=== PATIENT | male | born 1935 | race Caucasian/White ===

== ENCOUNTER 2022-04-03 00:18 | Inpatient (IN) | payer MEDICARE, OTHER, SELFPAY ==
[2022-04-03] VITALS (15 sets, daily range): BP systolic 108–122; BP diastolic 47–56; PULSE 62–73; RESP 16–22; TEMP 36.4–36.9; O2SAT 78–98; BMI 26.9
--- NOTE | 2022-04-03 02:39 | HP.PCM.HOS_ITS ---
HPI - General General Date of Admission: 04/03/22 Date of Service: 04/03/22 Chief Complaint: Fatigue, malaise, fever, confusion. HPI Narrative The patient is an 86 y/o M w/ PMHx: EtOH abuse sober x 34 years, Former tobacco use with COPD, SELENA, CAD (denies PCI history of note), Inflammatory Polyarthropathy, Diabetes mellitus type II who presents to the [facility] as direct admission on 04/03/22 following evaluation at [facility] ED secondary to history of increased fatigue, malaise, nausea with decreased oral intake as well as fevers and mild reported confusion starting the evening prior but no specific dyspnea, cough, abdominal pain, diarrhea. He does admit to recent increased urinary frequency but no specific dysuria. 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, CT head with no acute intracranial findings, COVID-19 negative, urinalysis with elevated specific remedy 1.020, hazy, 5 ketones, moderate 2+ blood, glucose 50, leukocyte Estrace 1+, nitrite negative with WBC 41, RBC 20, bacteria 1+, chest x-ray with findings consistent with COPD and questionable left lower lobe infiltrate, lactate 1.5, CMP with sodium 136, potassium 4.0, chloride 101, anion gap 12, BUN/creatinine 21/1.50 (06/29/21 Cr 1.17), glucose 155, total bilirubin 1.9 (06/29/21 T Bili 0.4), AST/ALT 15/17, alk phos 50, CBC with WBC 13.4, hemoglobin 16.3, platelet 163 with left shift, EKG with SR with RBBB without acute evidence of ischemia. In the OSH ED patient administered IV rocephin, azithromycin. [facility] Medical History (Updated 04/03/22 @ 03:02 by Joslyn Evans) Allergic rhinitis CAD (coronary artery disease) COPD (chronic obstructive pulmonary disease) CPAP (continuous positive airway pressure) dependence Diabetes mellitus, type 2 Former smoker HLD (hyperlipidemia) HTN (hypertension) Inflammatory arthropathy SELENA (obstructive sleep apnea) Wears hearing aid in both ears Home Medications aspirin 81 mg tablet,delayed release 81 mg PO DAILY 04/02/22 [History Last Taken Unknown] metformin 500 mg tablet 500 mg PO DAILY 04/02/22 [History Last Taken Unknown] metoprolol succinate 50 mg tablet,extended release 24 hr 50 mg PO DAILY 04/02/22 [History Last Taken Unknown] prednisone 5 mg tablet 5 mg PO DAILY 04/02/22 [History Last Taken Unknown] rosuvastatin 20 mg tablet 20 mg PO DAILY 04/02/22 [History Last Taken Unknown] alendronate 70 mg tablet 70 mg PO QWEEK 04/03/22 [History Last Taken Unknown] cyanocobalamin (vitamin B-12) 1,000 mcg/mL injection solution 1,000 mcg IM QMONTH 04/03/22 [History Last Taken Unknown] fluticasone 100 mcg-salmeterol 50 mcg/dose blistr powdr for inhalation 1 inh inhalation BID 04/03/22 [History Last Taken Unknown] Allergy/AdvReac Type Severity Reaction Status Date / Time No Known Allergies Allergy Verified 04/03/22 02:49 Family History (Updated 04/02/22 @ 22:[address] Anu Hernandez MD) Other Adopted Surgical History History of tonsillectomy and adenoidectomy Social History (Updated 04/02/22 @ 22:[address] Anu Hernandez MD) household members: spouse Smoking Status: Former smoker how long ago did patient quit smoking: Quit ~30 years prior, smoked ~ 2 ppd until he quit, started near teenager. alcohol intake: former details: Sober x 34 years. substance use type: does not use ROS ROS Narrative Admission Review of Systems: CONSTITUTIONAL: No weight loss, chills, +fever, weakness or fatigue. HEENT: + Hard of hearing. Eyes: No visual loss, blurred vision, double vision or yellow sclerae. Ears, Nose, Throat: No hearing loss, sneezing, congestion, runny nose or sore throat. SKIN: No rash or itching, lesions, wounds. CARDIOVASCULAR: No chest pain, chest pressure or chest discomfort, palpitations, edema, orthopnea, syncopal events. RESPIRATORY: + shortness of breath, cough without marked sputum, No wheezing, hemoptysis. GASTROINTESTINAL: + anorexia, nausea, vomiting, diarrhea, No abdominal pain, melena, BRBPR. GENITOURINARY: + Frequency, urgency, No dysuria or retention. NEUROLOGICAL: + Confusion, No headache, dizziness, syncope, paralysis, ataxia, numbness or tingling in the extremities, focal weakness, change in bowel or joy dder control, seizure. MUSCULOSKELETAL: + muscle, back pain, joint pain or stiffness. HEMATOLOGIC: + anemia, bleeding or bruising. LYMPHATICS: No enlarged nodes. No history of splenectomy. PSYCHIATRIC: No history of depression or anxiety. ENDOCRINOLOGIC: No reports of sweating, cold or heat intolerance. No polyuria or polydipsia. ALLERGIES: No history of asthma, hives, eczema or rhinitis. Physical Exam Narrative Physical Examination: General: Awake, alert, oriented x 3 and cooperative, seated upright in MedSur bed, no acute distress, fatigued appearing. Skin: Normal color, normal turgor, no icterus, no cyanosis. HEENT: AT/NC, EOMI, PERRLA, MMM, no carotid bruits or JVD noted. Lungs: Mildly diminished, greater bases, appropriate effort, no rales, ronchi or wheezing. Heart: Regular rate and rhythm; no gallop, rub audible. Abdomen: Soft, NTTP, no marked suprapubic tenderness to palpation, ND, distant normal BS, no HSM. Extremities: No cyanosis, clubbing, or edema. Neurological: Patient awake, alert, oriented as noted, hard of hearing, cognitive function appears improved, currently appears suspected basal intact; pupils equally reactive to light and accommodation, cranial nerves grossly normal, moving all 4 extremities, no focal deficits, strength mildly to moderately global decreased Psychiatric: Affect appears fatigued otherwise normal, no acute evidence of depressive or anxiety feelings. Assessment & Plan Assessment/Plan (1) Pneumonia: PLAN: Plan The patient is an 86 y/o M w/ PMHx: EtOH abuse sober x 34 years, Former tobacco use with COPD, SELENA, CAD (denies PCI history of note), Inflammatory Polyarthropathy, Diabetes mellitus type II who presents to the [facility] as direct admission on 04/03/22 following evaluation at [facility] ED secondary to history of increased fatigue, malaise, nausea with decreased oral intake as well as fevers and mild reported confusion starting the evening prior but no specific dyspnea, cough, abdominal pain, diarrhea. He does admit to recent increased urinary frequency but no specific dysuria. #1. Acute Encephalopathy secondary to Acute Community Acquired Pneumonia with associated Hypoxia and possible #2: Will admit to MS, maintain on oxygen with wean as tolerated to room air, hold home inhaler and in the interim transition to ATC duonebs given underlying COPD as noted, PRN albuterol, maintain on IV Rocephin and Azithromycin, HOB, IS parameters w/ pending sputum cultures, full respiratory viral panel and urine antigens. #2. Possible Acute Urinary Tract Infection: UA upon OSH ED evaluation mildly remarkable, pending UCx, continue IVFs, monitor I/Os, continue IV Rocephin w/ transition as able pending sensitivities and speciation from their facility. #3. Acute renal insufficiency: Outside facility BUN/creatinine 21/1.50, baseline creatinine noted prior 06/29/2021 1.17, will judiciously hydrate and repeat BMP in AM. #4. Hyperbilirubinemia: CMP at outside facility with total bilirubin 1.9 previously noted 06/29/2020 1T bili 0.4 with unremarkable AST/ALT and alk phos, will request repeat CMP in a.m. and if remains elevated despite treatments as noted above we will pursue further work-up. #5. Inflammatory polyarthropathy: We will continue patient home low-dose chronic prednisone therapy. #6. CAD: From review of external records noted 12/12/21 cardiac stress testing with no acute evidence of inducible ischemia, noted moderate (10-20%) fixed perfusion defect in the LAD territory, LV normal size, normal LV systolic function, RV normal size. #7. Hypertension: Continue home regimen including metoprolol with hold parameters as needed, PRN hydralazine. #8. Hyperlipidemia: Continue home statin regimen. #9. Diabetes mellitus type II: Hold oral home regimen, ADA diet, accu checks w/ ISS. #10. Chronic COPD: Will maintain on oxygen with wean as tolerated to room air, hold home inhaler and transition in interim to ATC duonebs, PRN albuterol, HOB, IS parameters. #11. Former alcohol abuse: Sober x34 years, encourage continued sobriety. #12. Former tobacco use: Encourage continued tobacco cessation. #13. SELENA: CPAP nightly. #14. DVT prophylaxis: SCDs, Lovenox. #15. CODE status: Patient GERALDO is his and daughter and living will is currently in place. Discussed CODE status at length including difference between FULL code, DNR-CCA and DNR-CC status. Following discussions about the differences in these status, requested Full Code status. Advanced Care Planning Face to Face Time: 16 minutes. Charges/Coding Visit Charges OBSV E&M: 54515 Initial observation care L3 Procedures Hospitalists Procedures: 44040 Advncd Care Plan 30 Min
[2022-04-03] MEDS: 0.9% Normal Saline 1,000 ML 100 ML IV ×3 (03:19→21:16)
[2022-04-03 05:01] LABS: Absolute Lymphocyte Count 1.45 X10^3/uL (0.83-4.51); Absolute Neutrophil Count 14.1 X10^3/uL (2.0-7.7); Basophil# 0.05 X10^3/uL; Basophil% 0.3 % (0-1); Eosinophil# 0.01 X10^3/uL; Eosinophils% 0.1 % (0-5); Hematocrit 43.9 % (40-54); Hemoglobin 14.8 g/dL (13.0-16.5); Lymphocyte # 1.45 X10^3/ul (0.83-4.51); Lymphocyte % 8.2 % (19-41); Mean Corp Hgb Conc 33.7 g/dL (32-36); Mean Corpuscular Hgb 31.2 pg (27.0-32.0); Mean Corpuscular Volume 92.6 fL (80-94); Mean Platelet Vol. 10.5 fl (6.2-12.0); Monocyte# 1.86 X10^3/uL; Monocyte% 10.6 % (0-10); NRBC Flagged by Analyzer 0 % (0-5); Neutrophil # 14.13 X10^3/uL (2.7-7.7); Neutrophil % 80.2 % (47-70); POSITIVE DIFFERENTIAL YES; Platelet Count 151 K/mm3 (150-450); RBC Distribution Width CV 13.4 % (11.6-14.6); RBC Distribution Width SD 45.6 fl (35.1-43.9); Red Blood Count 4.74 M/mm3 (4.6-6.2); White Blood Count 17.6 K/mm3 (4.4-11.0)
[2022-04-03 05:13] LABS: Differential Indicated SCAN CRITERIA MET
[2022-04-03 05:25] LABS: ALB/GLOB Ratio 0.8 RATIO (0.9-2.4); AST(SGOT) 14 U/L (15-37); Alanine Aminotransfer ALT/SGPT 20 U/L (16-61); Albumin, Serum 2.7 g/dL (3.2-5.0); Alkaline Phosphatase 49 U/L (45-117); Anion Gap 9 (5-15); BUN 20 mg/dL (7-18); BUN/Creat Ratio 16.5 RATIO (10-20); Calcium,Total 8.7 mg/dL (8.5-10.1); Chloride 102 mmol/L (98-107); Creatinine, Serum 1.21 mg/dL (0.70-1.30); EST Glomerular Filtration Rate 61 mL/min (>60); Est Glom Filt Rate - Afr Amer 73 mL/min (>60); Estimated Creatinine Clearance 47.54 ml/min; Globulin 3.5 g/dL (2.2-4.2); Glucose 146 mg/dL (74-106); Potassium 3.7 mmol/L (3.5-5.1); Protein, Total 6.2 g/dL (6.4-8.2); Sodium Level 137 mmol/L (136-145)
[2022-04-03 06:55] LABS: Bedside Glucose 132 mg/dL (74-106)
[2022-04-03] MEDS: Ipratropium/Albuterol Sulfate 3 ML AMPUL.NEB INHALATION ×3 (07:28→19:46)
[2022-04-03] MEDS: Enoxaparin 40 MG/0.4 ML Syringe SC (08:34)
[2022-04-03] MEDS: predniSONE 5 MG Tablet PO (08:35)
[2022-04-03] MEDS: Aspirin E.C. 81 MG Tablet PO (08:35)
[2022-04-03] MEDS: Ceftriaxone 1 GM/50 ML BAG IV (09:24)
[2022-04-03] MEDS: Insulin Lispro 100 UNIT/ML INSULN.PEN SC ×3 (11:31→21:16)
[2022-04-03 11:45] LABS: Bedside Glucose 209 mg/dL (74-106)
[2022-04-03] MEDS: predniSONE 20 MG Tablet 40 MG PO (12:04)
[2022-04-03 12:46] LABS: Pathologist Review Reviewed
--- NOTE | 2022-04-03 13:36 | PCM.HOSP.N ---
Hospitalist Note Mr. Owen is an 86-year-old male who was admitted early this morning with acute hypoxia. He recently went on a cruise up to [place] and has just returned. He presented to outside facility with increased fatigue, malaise, nausea and decreased oral intake as well as fevers and some mild confusion along with cough. He was found to be hypoxic on room air with oxygen saturations in the low 80s to upper 70s. 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 CT of the head was negative. His COVID-19 was negative urinalysis was consistent with dehydration but showed no signs of infection. His lactate was 1.5 initially and he appeared to have some dehydration with a serum creatinine of 1.5 (baseline 1.17 on most recent lab). He was transferred here as there was no beds available there and started on IV antibiotics with Rocephin and azithromycin as an outpatient. He was found to have a positive viral swab for RSV while hospitalized here. He has had ongoing fatigue, decreased appetite, and hypoxia on room air with exertion. We will go ahead and continue IV fluids but decrease rate from 100-50, continue ceftriaxone azithromycin for potential superimposed bacterial pneumonia with CAT scan findings, continue prednisone but increase to 40 mg daily with wheezing on exam, and continue supportive care. We will reevaluate him tomorrow. Oxygen saturations at rest were 96% however he desatted to 78% on room air. He required 2 L to keep oxygen saturations greater than 92% with exertion.
--- NOTE | 2022-04-03 13:48 | CASEMGMT ---
Addendum entered by Uzma Owen 04/03/22 13:58: Referral to patient link made. Original Note: RN NICA Assessment: Face to Face with pt for initial transition planning/care coordination assessment. RN CM introduced self and role at [facility], pt voices understanding and consents to assessment. Pt is A/O x4 and answers all questions appropriately at this time. Pt lying in bed with oxygen on in no distress, at bedside. Care providers, pharmacy, and demographics verified/updated. Admitting Dx: pna, hypoxia, ? UTI PCP:Antonio Specialists:Abad, cardio; Liver specialist at [facility] Preferred Pharmacy: [facility] in [place] Insurance: [facility], [employer] Prescription Benefit: yes LW/HPOA: Pt states he has a LW/DPOA and his Tina Owen is his DPOA. He is aware this is not on file at [facility] and he may bring in to be scanned into the chart. LNOK: Tina Owen, Living Arrangements: Pt lives with in a single story house with 5 steps to enter without a rail. Pt reports he is I in ADL's and denies concerns at home. Transportation: Pt drives self and denies concerns with transportation. DME/HHC/SNF: Pt has a cane that he uses occasionally and has grab bars in the bathroom. Pt denies hx of HHC or SNF stays. Pt states no concerns with going home at time of dc. Patient currently denies need for HHC or therapy whether it be in the home or outpt. Patient was provided a list of HHC providers including quality and resource use data and consistent with the patient?s preferred geographic region, medical needs, and insurance network were provided from the [employer] Guide. He is aware that should he get home and change his mind, he can contact his PCP to see about making referral. Pt states no further concerns/needs. CM to follow. Advised pt to ask CM if any further question/concerns/needs arise, voices understanding. Pt Goal: Home Plan: Home
[2022-04-03 16:50] LABS: Bedside Glucose 192 mg/dL (74-106)
[2022-04-03] MEDS: Atorvastatin Calcium 40 MG Tablet PO (21:16)
[2022-04-03 21:41] LABS: Bedside Glucose 232 mg/dL (74-106)
[2022-04-04] VITALS (9 sets, daily range): BP systolic 112–117; BP diastolic 53–63; PULSE 59–70; RESP 18–20; TEMP 36.3–36.5; O2SAT 84–94
[2022-04-04 04:58] LABS: Absolute Lymphocyte Count 0.66 X10^3/uL (0.83-4.51); Absolute Neutrophil Count 10.2 X10^3/uL (2.0-7.7); Basophil# 0.02 X10^3/uL; Basophil% 0.2 % (0-1); Hematocrit 40.4 % (40-54); Hemoglobin 13.9 g/dL (13.0-16.5); Lymphocyte # 0.66 X10^3/ul (0.83-4.51); Lymphocyte % 5.4 % (19-41); Mean Corp Hgb Conc 34.4 g/dL (32-36); Mean Corpuscular Volume 92.9 fL (80-94); Mean Platelet Vol. 10.2 fl (6.2-12.0); Monocyte# 1.37 X10^3/uL; Monocyte% 11.1 % (0-10); NRBC Flagged by Analyzer 0 % (0-5); Neutrophil # 10.19 X10^3/uL (2.7-7.7); Neutrophil % 82.6 % (47-70); Platelet Count 140 K/mm3 (150-450); RBC Distribution Width CV 13.2 % (11.6-14.6); RBC Distribution Width SD 45.5 fl (35.1-43.9); Red Blood Count 4.35 M/mm3 (4.6-6.2); White Blood Count 12.3 K/mm3 (4.4-11.0)
[2022-04-04 05:26] LABS: ALB/GLOB Ratio 0.7 RATIO (0.9-2.4); AST(SGOT) 28 U/L (15-37); Alanine Aminotransfer ALT/SGPT 35 U/L (16-61); Albumin, Serum 2.4 g/dL (3.2-5.0); Alkaline Phosphatase 49 U/L (45-117); Anion Gap 5 (5-15); BUN 18 mg/dL (7-18); BUN/Creat Ratio 17.5 RATIO (10-20); Calcium,Total 8.5 mg/dL (8.5-10.1); Chloride 110 mmol/L (98-107); Creatinine, Serum 1.03 mg/dL (0.70-1.30); EST Glomerular Filtration Rate 73 mL/min (>60); Est Glom Filt Rate - Afr Amer 88 mL/min (>60); Estimated Creatinine Clearance 55.85 ml/min; Globulin 3.4 g/dL (2.2-4.2); Glucose 160 mg/dL (74-106); Magnesium 2.3 mg/dL (1.6-2.6); Phosphorus 1.7 mg/dL (2.5-4.9); Protein, Total 5.8 g/dL (6.4-8.2); Sodium Level 141 mmol/L (136-145)
[2022-04-04] MEDS: 0.9% Normal Saline 1,000 ML 100 ML IV (06:15)
[2022-04-04] MEDS: Senna/Docusate Sodium 1 Tablet 2 TABLET PO (06:16)
[2022-04-04] MEDS: Insulin Lispro 100 UNIT/ML INSULN.PEN SC ×2 (06:16→11:22)
[2022-04-04 06:40] LABS: Bedside Glucose 165 mg/dL (74-106)
[2022-04-04] MEDS: Ipratropium/Albuterol Sulfate 3 ML AMPUL.NEB INHALATION ×2 (07:11→13:54)
[2022-04-04] MEDS: predniSONE 20 MG Tablet 40 MG PO (08:40)
[2022-04-04] MEDS: Metoprolol(XL)Succ 50 MG Tablet PO (08:40)
[2022-04-04] MEDS: Aspirin E.C. 81 MG Tablet PO (08:40)
[2022-04-04] MEDS: Enoxaparin 40 MG/0.4 ML Syringe SC (08:41)
[2022-04-04] MEDS: Ceftriaxone 1 GM/50 ML BAG IV (10:03)
[2022-04-04] MEDS: 0.9% Saline Lock 10 ML Syringe IV (10:03)
[2022-04-04 11:45] LABS: Bedside Glucose 229 mg/dL (74-106)
--- NOTE | 2022-04-04 13:15 | DS.PCM_ITS ---
Providers Date of Admission: 04/03/22 Date of Discharge: 04/04/22 Primary Care Physician: Dr. Sally Alvarez MD Reason For Visit: PNA, HYPOXIA, ? UTI Diagnosis Discharge Diagnosis (1) Pneumonia: Status: Acute Code(s): J18.9 - Pneumonia, unspecified organism Medications at Discharge Home Medications aspirin 81 mg tablet,delayed release 81 mg PO DAILY 04/02/22 metformin 500 mg tablet 500 mg PO DAILY 04/02/22 metoprolol succinate 50 mg tablet,extended release 24 hr 50 mg PO DAILY 04/02/22 rosuvastatin 20 mg tablet 20 mg PO DAILY 04/02/22 alendronate 70 mg tablet 70 mg PO QWEEK 04/03/22 cyanocobalamin (vitamin B-12) 1,000 mcg/mL injection solution 1,000 mcg IM QMONTH 04/03/22 fluticasone 100 mcg-salmeterol 50 mcg/dose blistr powdr for inhalation 1 inh inhalation BID 04/03/22 levofloxacin 750 mg tablet 750 mg PO DAILY #5 tabs 04/04/22 prednisone 10 mg tablet 10 mg PO DAILY #20 tabs 04/04/22 prednisone 5 mg tablet 5 mg PO DAILY #1 TAB 04/04/22 Hospital Course Operations None Procedures - (CTA chest) Summary of Care Provided Minutes Spent on Discharge: 37 Hospital Course: Mr. Owen is an 86-year-old white male who presented to an outside facility with acute hypoxia and shortness of breath with an associated fatigue, malaise, nausea, and decreased oral intake. There is also some report of fever and mild confusion along with a cough. He had evidently recently gone on a cruise up to [place] and had just returned. A CTA of his chest was performed outside facility was negative for pulmonary embolism but did show chronic changes as well as subtle basilar opacities that were concerning for developing pneumonia. A CT of the head was performed and was negative. His COVID-19 was negative. Urinalysis was concerning for infection and his BMP was consistent with dehydration as he had a serum creatinine of 1.5 demonstrating a previous baseline of 1.1-1.2. He was transferred from [facility] in [place] here as there were no beds available at that time and he was started on IV antibiotics with Rocephin and azithromycin. While he was hospitalized he was found to have a positive RSV swab. He had ongoing fatigue with decreased appetite and was treated with supportive care along with oral steroids at 40 mg daily given his expiratory wheezing. IV fluids were given as well and his serum creatinine returned to baseline. Strep pneumo and Legionella antigen were negative. A urine culture was obtained given the concern for UTI based on his UA at outside facility and it was negative for any growth. On the day of discharge his serum creatinine is 1.03. He had a leukocytosis upon presentation at 17.6. This trended down as well to 12.3 on the day of discharge. On the a.m. of 04/04/2022 he was feeling much better with improved energy, decreased nausea with much improved oral intake but did continue to need oxygen with exertion. An ambulatory pulse ox was performed and while he was 94% at rest with room air, he did desaturate to 84% with exertion and improved to 93% on 2 L nasal cannula. He indicated he was feeling well enough to go home and desired to do so. We were able to discharge him home on supplemental oxygen with exertion on 04/04/2022. We did maintain him on oral antibiotics for another 5 days to complete a total 7-day treatment and he was sent home with a prednisone taper. Once his prednisone taper is discontinued he is to restart his chronic prednisone of 5 mg daily. He is to follow-up with his primary care physician within the next 1 to 2 weeks to be ri t evaluated for oxygen needs with exertion. The plan was explained to the patient with his at the bedside and they both expressed understanding. Discharge diagnoses: RSV pneumonia Suspected superimposed bacterial pneumonia Hypoxia secondary to above Metabolic encephalopathy-resolved FREDDIE-resolved Hyperbilirubinemia-resolved Inflammatory polyarthropathy CAD Hypertension Hyperlipidemia DM-2 COPD History of alcohol abuse History of tobacco abuse SELENA Physical Exam Const alert, oriented x3, no apparent distress, no limitations, healthy appearing and well nourished Constitutional Narrative: Overweight, elderly white male sitting up in bed, appears comfortable and n ontoxic General Appearance: cooperative, comfortable, well kempt and well developed Orientation / Consciousness: awake Exam Limitations: no limitations Nutritional Appearance: overweight HEENT normocephalic, head/scalp atraumatic and moist oral mucous membranes HEENT Narrative: Mallampati 2-3, no thrush Eyes PERRL, EOMs intact bilaterally and conjunctivae normal Eyes Narrative: No scleral Neck no lymphadenopathy, supple and no JVD Neck Narrative: Trachea midline, no thyroid enlargement Resp normal respiratory effort, no retractions, no use of accessory muscles and clear to auscultation bilaterally Resp Narrative: Diminished but clear Auscultation: Negative for crackles, rales, rhonchi or wheezes Cardio regular rate, regular rhythm, S1 normal heart sound, S2 normal heart sound, no murmurs, no rub, no gallops and no clicks GI normal to inspection, nondistended, normoactive bowel sounds, soft to palpation and non-tender Extremity no clubbing, cyanosis or edema Extremity Narrative: 2+ pedal pulses Skin no rashes or lesions noted, no wounds, skin turgor normal and no jaundice Neuro oriented x3, CN's II-XII intact bilaterally and no focal motor deficits Neuro Narrative: Mild generalized weakness Sensorium / Orientation: awake, alert, oriented to person, oriented to place and oriented to time Speech: speech normal Psych affect normal Psych Narrative: Very pleasant and appropriately interactive Weight / BMI Weight Weight: 89.8 kg Body Mass Index (BMI) 26.9 ABG / Lab / Microbiology Data Result Diagrams: 04/04/22 04:40 04/04/22 04:40 Laboratory: Laboratory Results - last 24 hr 04/03/22 16:29: POC Glucose 192 H 04/03/22 21:16: POC Glucose 232 H 04/04/22 04:40: WBC 12.3 H, RBC 4.35 L, Hgb 13.9, Hct 40.4, MCV 92.9, MCH 32.0, MCHC 34.4, RDW Std Deviation 45.5 H, RDW Coeff of Jasmin 13.2, Plt Count 140 L, MPV 10.2, Immature Gran % (Auto) 0.700, Neut % (Auto) 82.6 H, Lymph % (Auto) 5.4 L, [place] % (Auto) 11.1 H, Eos % (Auto) 0.0, Baso % (Auto) 0.2, Absolute Neuts (auto) 10.2 H, Absolute Lymphs (auto) 0.66 L, Nucleated RBC % 0 04/04/22 04:40: Sodium 141, Potassium 4.0, Chloride 110 H, Carbon Dioxide 26.0, Anion Gap 5, BUN 18, Creatinine 1.03, Estim Creat Clear Calc 55.85, Est GFR (MDRD) Af Amer 88, Est GFR (MDRD) Non-Af 73, BUN/Creatinine Ratio 17.5, Glucose 160 H, Calcium 8.5, Phosphorus 1.7 L, Magnesium 2.3, Total Bilirubin 0.40, AST 28, ALT 35, Alkaline Phosphatase 49, Total Protein 5.8 L, Albumin 2.4 L, Globulin 3.4, Albumin/Globulin Ratio 0.7 L 04/04/22 06:15: POC Glucose 165 H 04/04/22 11:20: POC Glucose 229 H Microbiology: Microbiology 04/03/22 21:00 Urine, Clean Catch Urine Culture - Preliminary Culture exhibits no growth. 04/03/22 03:40 Mucosa - Nasopharyngeal Respiratory Panel (PCR) - Final Rhinovirus 04/03/22 05:55 Urine, Clean Catch Legionella Antigen - Final 04/03/22 05:55 Urine, Random Streptococcus pneumoniae Antigen (M - Final D/C Instructions Discharge Diet: Low fat / Low cholesterol and 1800 Calorie Control Diet Discharge Activity: Return to Normal Activity Meaningful Use Info Meaningful Use Diagnoses (Choose all that apply): None applicable Discharge Plan Admission Admit Date/Time: 04/03/22 11:41 Primary Reason for Your Visit: Shortness of breath/hypoxia Attending Provider: Allison Waite Primary Care Provider: Sally Alvarez Consulting Providers: Anu Hernandez Instructions Additional Instructions / Restrictions: 1. Please use oxygen during exertion until discontinued by your primary care physician Discharge Orders/Prescriptions Prescriptions: New levofloxacin 750 mg tablet 750 mg PO DAILY Qty: 5 0RF prednisone 10 mg tablet 10 mg PO DAILY Qty: 20 0RF Rx Instructions: 40 mg x 2 days, 30 mg x 3 days, 20 mg x 3 days, 10 mg x 3 days Continued alendronate 70 mg tablet 70 mg PO QWEEK Label Comments: Take 1 tab by mouth ONCE WEEKLY in morning with a full glass of water, on empty stomach. Do not eat, drink or lie down for 30 mins after cyanocobalamin (vitamin B-12) 1,000 mcg/mL solution 1,000 mcg IM QMONTH fluticasone propion-salmeterol 100-50 mcg/dose blister with device 1 inh INHALATION BID Label Comments: Inhale 1 Puff as instructed twice daily. RINSE AND GARGLE MOUTH WITH WATER AFTER EACH USE. prednisone 5 mg Tablet 5 mg PO DAILY Qty: 1 0RF Rx Instructions: Hold until prednisone taper is discontinued metformin 500 mg Tablet 500 mg PO DAILY metoprolol succinate 50 mg Tablet Extended Release 24 Hr 50 mg PO DAILY aspirin 81 mg Tablet,Delayed Release (Dr/Ec) 81 mg PO DAILY rosuvastatin 20 mg Tablet 20 mg PO DAILY Referrals / Follow Up: Sally Alvarez MD [Primary Care Provider] - Within 2 Weeks Disposition Disposition (needs filled in before D/C Order can be placed): Home, Self Care Charges/Coding Visit Charges Inpatient E&M: 89910 Disch Hosp
--- NOTE | 2022-04-04 13:30 | CASEMGMT ---
Pt qualifies for home oxygen. COLEEN CM in to pt room, pt provided with a local in network list of DME companies, pt chose [employer]. Referral sent via [facility]port for oxygen. Email to hospital liaision. Pt to dc home with pox as well. Pt is still declining need for HHC. He is aware as well as to call [employer] once home to have concentrator delivered. They both verbalize understanding.
--- NOTE | 2022-04-04 14:57 | PHA.DC.MC ---
Pharmacy Service has performed discharge medication reconciliation and counseling for this patient. 1. LEVOFLOXACIN 750MG PO DAILY X 5 DAYS The patient's discharge medication list was reviewed for discrepancies and discrepancies were resolved. Patient instructed to hold baseline prednisone 5mg until taper is complete. Home Medications aspirin 81 mg tablet,delayed release 81 mg PO DAILY 04/02/22 metformin 500 mg tablet 500 mg PO DAILY 04/02/22 metoprolol succinate 50 mg tablet,extended release 24 hr 50 mg PO DAILY 04/02/22 rosuvastatin 20 mg tablet 20 mg PO DAILY 04/02/22 alendronate 70 mg tablet 70 mg PO QWEEK 04/03/22 cyanocobalamin (vitamin B-12) 1,000 mcg/mL injection solution 1,000 mcg IM QMONTH 04/03/22 fluticasone 100 mcg-salmeterol 50 mcg/dose blistr powdr for inhalation 1 inh inhalation BID 04/03/22 levofloxacin 750 mg tablet 750 mg PO DAILY #5 tabs 04/04/22 prednisone 10 mg tablet 10 mg PO DAILY #20 tabs 04/04/22 prednisone 5 mg tablet 5 mg PO DAILY #1 TAB 04/04/22 The patient was counseled on the following discharge medications and changes in medications for homegoing were reviewed. The Reason for Use, instructions for use, and potential side effects were reviewed for all new medications. The patient's questions regarding all of their medications were answered. The patient was able to verbally demonstrate an understanding of their discharge medications. Patient counseled by pharmacy technician instructorMari.
--- NOTE | 2022-04-06 12:04 | CASEMGMT ---
COLEEN YOUSIF received call from patient. Patient states he has been monitoring his oxygen level at home and has been maintaining above 90%. Patient states he called [employer] to pickup home oxygen but they state he need an order. Patient is requesting script from hospitalist to discontinue oxygen. COLEEN YOUSIF educated patient that his PCP will need to discontinue his home oxygen. Patient states he will be calling to schedule follow-up appt. Patient inquired if he needed to continue taking his levofloxacin as it is causing him to be restless and not able to sleep at night. COLEEN YOUSIF educated patient on the importance of finishing all of his antibiotic to treat his pneumonia. Patient states he only has three doses left and will finish medication as prescribed. Patient had no further questions or concerns at this time.
== END 2022-04-04 14:49 | disposition home or self-care (01) | DRG 193 ==
PROVIDERS: Admitting Provider Family Medicine; PCP Internal Medicine; Visit Provider Internal Medicine
DX: J12.1 Respiratory syncytial virus pneumonia (principal); G93.41 Metabolic encephalopathy; J44.0 Chronic obstructive pulmonary disease with (acute) lower respiratory infection; E11.9 Type 2 diabetes mellitus without complications; M06.4 Inflammatory polyarthropathy; I25.10 Atherosclerotic heart disease of native coronary artery without angina pectoris; E78.5 Hyperlipidemia, unspecified; I10 Essential (primary) hypertension; G47.33 Obstructive sleep apnea (adult) (pediatric); I45.10 Unspecified right bundle-branch block; E80.7 Disorder of bilirubin metabolism, unspecified; E86.0 Dehydration; J15.9 Unspecified bacterial pneumonia; Z87.891 Personal history of nicotine dependence; Z79.82 Long term (current) use of aspirin; Z79.899 Other long term (current) drug therapy; R09.02 Hypoxemia; N28.9 Disorder of kidney and ureter, unspecified; Z87.440 Personal history of urinary (tract) infections; Z79.52 Long term (current) use of systemic steroids; E66.3 Overweight; Z68.26 Body mass index [BMI] 26.0-26.9, adult
CPT/HCPCS: 36415; 80053; 82962; 83735; 84100; 85025; 87086; 87449; 87633; 94640; 97110; 97116; 97162; 97166; 97530; 97535; J7030; J7050; A4216

== ENCOUNTER → 2023-11-13 | Outpatient (CLI) | payer MEDICARE, OTHER, SELFPAY ==
[2023-11-13 11:11] VITALS: BP 112/47; PULSE 65; RESP 16; O2SAT 99; BMI 24.5
--- NOTE | 2023-11-13 12:16 | PCM.OP.PRO ---
Procedure Report Date of Procedure: 11/13/23 Assessment & Plan Assessment/Plan (1) Diffuse large B cell lymphoma: QUALIFIERS: Lymphoma site: unspecified region Qualified Code(s): C83.30 - Diffuse large B-cell lymphoma, unspecified site Procedures Radiology Radiology Access Procedures: [id number] Insertion of PICC w/out port or pump Procedure Time Out Time Out Informed consent given: Yes Consent signed: Yes Time out checklist: patient, procedure, site marked/identified, positioning of patient, supplies available and allergies confirmed Time out verified: Yes Time out date: 11/13/23 Time out time: 11:29 PICC Line Consent Screening tool completed:: Yes Consent obtained:: Yes Consent given by (patient or responsible libertarian):: patient Line successful (if no, document why in comments):: Yes Insertion Reason for Insertion: Chemotherapy Date of Insertion: 11/13/23 Ok to use: Yes Type of PICC inserted: Single Power PICC PICC Lot #: [id number] PICC Reference #: [id number] Microintroducer Used: Yes (NOT included in Kit) Ultrasound/Equipment Used: Probe Cover Kit Trimmed Length (cm): 45 Insertion Length (cm): 45 Exposed Length (cm): 0 Tip Placement: Caval Atrial Junction Placement Confirmation: 3CG Insertion Vein: Right Basilic Insertion Attempts: 1 Local Anesthesia Used: Lidocaine 1% (in kit) Dressing Applied: Statlock and Tegaderm CHG Arm Measurement above site (in cm): 27 Patient Tolerated Procedure: Well Threading Difficulties: No Comments Comment: Patient identity was verified with two patient identifiers. Informed consent was obtained and time-out was completed. Hands were sanitized. The patient was positioned supine with right arm at 90 degrees. The patient's upper arm vasculature was assessed using ultrasound. Patency of the right basilic vein was confirmed and the vein was externally marked. An external measurement was obtained of 45 cm. External leads were applied to the patient's right upper chest and laterally and inferior of the umbilicus on the mid axillary line. Cap, mask, and prep gloves were donned. The underdrape was placed under the patient's arm. The site was prepped with chlorhexidine, and tourniquet was loosely applied. Prep gloves were discarded, and hands were sanitized. The sterile kit was opened with additional supplies dropped in. Sterile gown and gloves were donned, and the patient was draped. The sterile kit was assembled with needle, introducer, needless connector, and catheter lumen flushed with sterile normal saline. The marked site of insertion was anesthetized with 1% lidocaine from the kit. Patient tolerated well. The right basilic vein was then accessed using ultrasound guidance and guidewire was inserted to safety celso. The tourniquet was released. The access needle was removed while securing the guidewire in place. The site was again anesthetized with 1% lidocaine, prior to insertion of introducer sheath and dilator. Patient tolerated the insertion well. The catheter was trimmed to a length of 45 cm. Using 3C guidance, the catheter was then inserted through the introducer sheath, slowly. There was no resistance on insertion. The catheter followed the expected course of the vessel using 3CG tracking. The introducer sheath was retracted and peeled away, incrementally, while keeping the catheter secured. Maximal p-wave, without deflection, confirming placement in the cavoatrial junction, was obtained at an insertion length of 45 cm, leaving 0 cm external. The stylet was removed. A flushed needleless connector was attached to the lumen. Aspiration of the lumen was performed to remove any air and confirm blood return. Blood return was verified and the lumen was flushed with 10 ml of sterile normal saline in a pulsatile fashion. The lumen was clamped with the last pulsed flush. Total sterile flushes used for the insertion was 4 10 ml syringes, 1 from the kit. Finally, the insertion site was cleaned with chlorhexidine, and the catheter was secured using a StatLock. The site was covered with a Tegaderm CHG Dressing and disinfecting caps were applied. Baseline arm circumference was obtained at the insertion site and measured 27 cm. The patient was provided with a patient education handout on PICC line care of infection prevention, heavy lifting restriction, maintaining mobility, and watching for any signs of infection. The patient and are aware that the PICC line is ready for use.
== END | disposition home or self-care (01) ==
LOC: RAD 10:46
PROVIDERS: PCP Internal Medicine; Referring Provider Internal Medicine Hematology & Oncology; Visit Provider Internal Medicine Hematology & Oncology
DX: C83.30 Diffuse large B-cell lymphoma, unspecified site (principal)

== ENCOUNTER 2023-11-16 08:09 | Outpatient (CLI) | payer MEDICARE, OTHER, SELFPAY ==
[2023-11-16 08:19] VITALS: BP 106/39; PULSE 70; RESP 16; TEMP 36.4; BMI 23.3
[2023-11-16] MEDS: 0.9% NaCl Peripheral Flush Adult/Peds IV ×2 (08:33→13:10)
[2023-11-16] MEDS: 0.9% Normal Saline (500mL Bag) 500 ML 15 ML IV (08:33)
[2023-11-16 09:03] VITALS: BP 106/41; PULSE 66; RESP 16; TEMP 36.3
[2023-11-16 10:03] VITALS: BP 108/45; PULSE 70; RESP 16; TEMP 36.4; O2SAT 98
[2023-11-16 11:27] VITALS: BP 105/46; PULSE 64; RESP 16; TEMP 36.1; O2SAT 97
[2023-11-16 12:22] VITALS: BP 106/39; PULSE 68; RESP 16; TEMP 36.4
== END 2023-11-16 08:10 | disposition home or self-care (01) ==
LOC: MEDOUTP 08:09
PROVIDERS: PCP Internal Medicine; Referring Provider Internal Medicine Hematology & Oncology; Visit Provider Internal Medicine Hematology & Oncology
DX: D50.8 Other iron deficiency anemias (principal)
CPT/HCPCS: 96360; 96361; 36430; 86850; 86900; 86901; 86920; 86922; J7040; P9016; A4216